=== PATIENT | female | born 1955 | race Caucasian/White ===

== ENCOUNTER 2016-03-13 06:20 | Emergency (ER) | payer OTHER ==
[~2016-03-13] VITALS: Ht 175.2 cm; Wt 63.5 kg
--- NOTE | ~2016-03-13 | EKG ---
[place], [place] ELECTROCARDIOGRAM REPORT NAME: RENATE TERRAZAS UNIT #: [id number] ROOM: DOCTOR: KARTHIK THAKKAR MD BIRTHDATE: [birth year] DOS: 03/13/2016 TIME: 7 hours and 10 minutes. EKG shows sinus bradycardia at the heart rate of 56 beats per minute. Normal cardiac axis. No significant ST-T abnormality. KARTHIK THAKKAR MD CM:EKGRPT:ELECTROCARDIOGRAM REPORT [id number] KARTHIK THAKKAR MD
[~2016-03-13 06:20] MED LIST: ALBUTEROL0.09 MG/A2 IH; AMOXIL500 MG PO; ASPIRIN CHEWABL81 MG PO; ASPIRIN81 M1 PO; ATARAX25 MG PO; BENTYL20 MG PO; CIPRO250 MG PO; CLARITIN10 MG PO; COREG PO; COREG25 MG PO; COREG6.25 MG PO; DIPHENHYDRAMINE50 M1 PO; EPI EZ PEN1 MG/ML IM; FLEXERIL10 MG PO; FLEXERIL5 MG PO; FLOMAX0.4 MG PO; Fioricet 325 MG1 TAB PO; IMITREX100 MG PO; KEFLEX500 MG PO; KENALOG0.1% TP; LEVAQUIN LEVA-750 MG PO; LIDEX 0.05% CRE15 GM T; LIDEX0.05% T; LIPITOR40 MG PO; MEDROL DOSEPAK4 MG PO; MOBIC7.5 MG PO; MOTRIN600 MG PO; MOTRIN800 MG PO; Motrin,Rufen800 MG PO; NAPROSYN500 MG PO; PERCOCET 325 MG1 TA2 PO; PERCOCET 325 MG1 TA7 PO; PLAVIX75 MG PO; PREDNICOT20 MG PO; PREDNISONE20 M1 PO; PREDNISONE20 MG PO; PRILOSEC20 MG PO; PROZAC20 MG PO; SUPER EPA-3001000 MG PO; TORADOL10 MG PO; TRAMADOL HCL50 MG PO; TRAMADOL50 MG PO; TRAZADONE HYDR100 MG PO; TRAZODONE100 MG PO; ULTRAM50 MG PO; VICODIN 500 MG-1 TAB PO; VOLTAREN50 M1 PO; XANAX XR2 MG PO; XANAX0.25 MG PO; XANAX2 MG PO; ZANTAC 150150 MG PO; ZESTRIL5 MG PO
[2016-03-13] MEDS ORDERED: TRAZODONE100 MG PO (06:26)
[2016-03-13] MEDS ORDERED: PROZAC20 MG PO (06:26)
[2016-03-13] MEDS ORDERED: XANAX2 M1 PO (06:26)
[2016-03-13] MEDS ORDERED: ASPIRIN81 M1 PO (06:27)
[2016-03-13] MEDS ORDERED: PRAVACHOL40 MG PO (06:27)
[2016-03-13 07:06] LABS: BASO # 0.1 10*3/uL (0.0-0.1); BASO % 0.7 % (0.0-1.0); EOS # 0.3 10*3/uL (0.0-0.4); EOS % 2.7 % (1.0-4.0); HEMATOCRIT 40.7 % (37.0-47.0); HEMOGLOBIN 13.7 g/dl (12.0-16.0); LYMPH # 3.5 10*3/uL (1.3-4.4); LYMPH % 30.7 % (27.0-41.0); MEAN CELL VOLUME 96.2 fl (81.0-99.0); MEAN CORPUSCULAR HGB 32.4 pg (27.0-31.0); MEAN CORPUSCULAR HGB CONC 33.7 g/dl (33.0-37.0); MEAN PLATELET VOLUME 9.5 fl (9.6-12.3); MONO # 0.9 10*3/uL (0.1-1.0); MONO % 7.8 % (3.0-9.0); NEUT # 6.6 10*3/uL (2.3-7.9); NEUT % 57.7 % (47.0-73.0); PLATELET COUNT AUTOMATED 278 10*3/uL (130-400); RED BLOOD COUNT 4.23 10*6/uL (4.10-5.10); RED CELL DISTRI WIDTH 12.4 % (0-14.5); WHITE BLOOD COUNT 11.3 10*3/uL (4.8-10.8)
[2016-03-13 07:16] LABS: MAGNESIUM 1.7 mg/dL (1.5-2.1)
[2016-03-13 08:06] LABS: ALBUMIN 2.9 gm/dl (3.1-4.5); ALKALINE PHOSPHATASE 77 U/L (45-117); BILIRUBIN, TOTAL 0.2 mg/dl (0.2-1.0); BUN 9 mg/dl (7-24); CARBON DIOXIDE 28 mmol/L (21-32); CHLORIDE 107 mmol/L (98-107); EST GLOM FILT AFRICAN AMERICAN > 60 ml/min; GLUCOSE 81 mg/dL (65-99); POTASSIUM 3.8 mmol/L (3.5-5.1); SGOT/AST 15 IU/L (3-35); SGPT/ALT 21 U/L (12-78); SODIUM 142 mmol/L (136-145); TOTAL PROTEIN 6.8 gm/dL (6.4-8.2)
[2016-05-18] MEDS ORDERED: Fioricet 325 MG1 TAB PO (03:09)
== END 2016-03-13 11:31 | disposition home or self-care (01) ==
LOC: ED 06:20
PROVIDERS: Emergency Medicine Emergency Medical Services
DX: R51 Headache (principal); Z88.1 Allergy status to other antibiotic agents; Z88.6 Allergy status to analgesic agent; Z91.013 Allergy to seafood; Z79.82 Long term (current) use of aspirin; Z90.710 Acquired absence of both cervix and uterus

== ENCOUNTER → 2016-04-02 | Outpatient (CLI) | payer OTHER ==
[~2016-04-02] MED LIST changes: +PRAVACHOL40 MG PO; +XANAX2 M1 PO
== END | disposition home or self-care (01) ==
LOC: RAD 10:52
DX: R06.02 Shortness of breath (principal); F17.200 Nicotine dependence, unspecified, uncomplicated; R05 Cough; R07.9 Chest pain, unspecified

== ENCOUNTER 2016-06-25 13:24 | Emergency (ER) | payer OTHER ==
[~2016-06-25] VITALS: Wt 64.4 kg
[2016-06-25] MEDS ORDERED: PERCOCET 325 MG1 TA2 PO (15:16)
== END 2016-06-25 15:22 | disposition home or self-care (01) ==
LOC: ED 13:24
DX: S80.02XA Contusion of left knee, initial encounter (principal); S90.02XA Contusion of left ankle, initial encounter; F17.200 Nicotine dependence, unspecified, uncomplicated; Z98.890 Other specified postprocedural states; Z90.710 Acquired absence of both cervix and uterus; Z79.899 Other long term (current) drug therapy; Z79.82 Long term (current) use of aspirin; Z88.1 Allergy status to other antibiotic agents; Z91.013 Allergy to seafood; Z96.652 Presence of left artificial knee joint; W01.0XXA Fall on same level from slipping, tripping and stumbling without subsequent striking against object, initial encounter; Y93.89 Activity, other specified; Y92.89 Other specified places as the place of occurrence of the external cause; Y99.9 Unspecified external cause status

== ENCOUNTER → 2017-05-13 | Outpatient (CLI) | payer OTHER | END | disposition home or self-care (01) | LOC: CT 14:54 | DX: N20.0 Calculus of kidney (principal) ==

== ENCOUNTER → 2017-11-11 | Outpatient (CLI) | payer OTHER ==
[~2017-11-11] MED LIST changes: +TESSALON PERLE100 MG PO; +ZITHROMAX250 MG PO
== END | disposition home or self-care (01) ==
LOC: RAD 13:31
DX: M17.11 Unilateral primary osteoarthritis, right knee (principal); M25.461 Effusion, right knee; R19.7 Diarrhea, unspecified; R35.0 Frequency of micturition; R14.0 Abdominal distension (gaseous); Z90.49 Acquired absence of other specified parts of digestive tract; Z96.652 Presence of left artificial knee joint; Z90.710 Acquired absence of both cervix and uterus

== ENCOUNTER 2017-12-16 16:41 | Emergency (ER) | payer OTHER ==
[~2017-12-16] VITALS: Ht 167.6 cm; Wt 61.2 kg
--- NOTE | ~2017-12-16 | EKG ---
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
[~2017-12-16 16:41] MED LIST changes: -TESSALON PERLE100 MG PO; -ZITHROMAX250 MG PO
[2017-12-16 17:45] LABS: BASO # 0.1 10*3/uL (0.0-0.1); BASO % 0.7 % (0.0-1.0); EOS # 0.3 10*3/uL (0.0-0.4); EOS % 2.8 % (1.0-4.0); HEMATOCRIT 43.8 % (37.0-47.0); HEMOGLOBIN 15.1 g/dl (12.0-16.0); LYMPH # 3.7 10*3/uL (1.3-4.4); LYMPH % 35.3 % (27.0-41.0); MEAN CELL VOLUME 95.2 fl (81.0-99.0); MEAN CORPUSCULAR HGB 32.8 pg (27.0-31.0); MEAN CORPUSCULAR HGB CONC 34.5 g/dl (33.0-37.0); MEAN PLATELET VOLUME 9.1 fl (9.6-12.3); MONO # 0.8 10*3/uL (0.1-1.0); MONO % 7.6 % (3.0-9.0); NEUT # 5.6 10*3/uL (2.3-7.9); NEUT % 53.2 % (47.0-73.0); PLATELET COUNT AUTOMATED 285 10*3/uL (130-400); RED CELL DISTRI WIDTH 12.3 % (0-14.5); WHITE BLOOD COUNT 10.6 10*3/uL (4.8-10.8)
[2017-12-16 18:01] LABS: ALBUMIN 3.8 gm/dl (3.1-4.5); CREATININE 1.15 mg/dL (0.55-1.02); POTASSIUM 4.1 mmol/L (3.5-5.1); TOTAL PROTEIN 8.6 gm/dL (6.4-8.2)
[2017-12-16 19:34] LABS: BILIRUBIN NEGATIVE (NEGATIVE); BLOOD 1+ (NEGATIVE); CLARITY CLEAR (CLEAR); COLOR YELLOW (YELLOW); GLUCOSE NEGATIVE (NEGATIVE); KETONE NEGATIVE (NEGATIVE); LEUKO ESTERASE 1+ (NEGATIVE); NITRITE NEGATIVE (NEGATIVE); SPECIFIC GRAVITY <= 1.005 (1.005-1.030); UROBILINOGEN 0.2 E.U./dl (0.2-1.0)
[2017-12-16 19:39] LABS: BACTERIA TRACE; RBC 0-2 rbc/hpf (0-2)
[2017-12-16] MEDS ORDERED: ZITHROMAX250 MG PO (20:44)
[2017-12-16] MEDS ORDERED: TESSALON PERLE100 MG PO (20:44)
== END 2017-12-16 20:54 | disposition home or self-care (01) ==
LOC: ED 16:41
PROVIDERS: Emergency Medicine
DX: J40 Bronchitis, not specified as acute or chronic (principal); J98.01 Acute bronchospasm; K55.1 Chronic vascular disorders of intestine; G89.29 Other chronic pain; F17.200 Nicotine dependence, unspecified, uncomplicated; Z88.1 Allergy status to other antibiotic agents; Z91.013 Allergy to seafood; Z88.6 Allergy status to analgesic agent; Z79.899 Other long term (current) drug therapy; Z79.82 Long term (current) use of aspirin; Z90.710 Acquired absence of both cervix and uterus

== ENCOUNTER 2018-04-23 00:29 | Emergency (ER) | payer OTHER ==
[~2018-04-23] VITALS: Ht 175.2 cm; Wt 65.8 kg
--- NOTE | ~2018-04-23 | EKG ---
[place], [place] ELECTROCARDIOGRAM REPORT NAME: RENATE TERRAZAS UNIT #: [id number] ROOM: DOCTOR: EPIPHANY DRAFT REPORT BIRTHDATE: [birth year] [facility] Test Date: 2018-04-23 Test Time: 03:24:36 Pat Name: RENATE TERRAZAS Department: ER Room: 3 Gender: F Survey Analyst: Carlotta Agudelo : 1955 Requested By: JACOBO BOOTHE Order Number: [id number] Reading MD: Joan Guillen MD Measurements Intervals [place] Rate: 60 P: 29 [place]: 171 QRS: 40 QRSD: 82 T: 52 QT: 441 QTc: 441 Interpretive Statements Sinus rhythm Compared to ECG 12/16/2017 17:36:01 No significant changes Electronically Signed On 04-23-2018 7:52:38 PST by Joan Guillen MD CM:EKGRPT:ELECTROCARDIOGRAM REPORT [id number] JACOBO GELLER DRAFT REPORT JACOBO BOOTHE DO
--- NOTE | ~2018-04-23 | EKG ---
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
--- NOTE | ~2018-04-23 | EKG ---
[place], [place] ELECTROCARDIOGRAM REPORT NAME: RENATE TERRAZAS UNIT #: [id number] ROOM: DOCTOR: EPIPHANY DRAFT REPORT BIRTHDATE: [birth year] [facility] Test Date: 2018-04-23 Test Time: 07:07:07 Pat Name: RENATE TERRAZAS Department: Room: Gender: F Manager Supplier: Rebecca Sargent : 1955 Requested By: JACOBO BOOTHE Order Number: [id number] Reading MD: Joan Guillen MD Measurements Intervals [place] Rate: 63 P: 19 [place]: 150 QRS: 43 QRSD: 79 T: 53 QT: 444 QTc: 455 Interpretive Statements Sinus rhythm Normal ECG Compared to ECG 12/16/2017 17:36:01 No significant changes Electronically Signed On 04-23-2018 7:52:54 PST by Joan Guillen MD CM:EKGRPT:ELECTROCARDIOGRAM REPORT [id number] JACOBO GELLER DRAFT REPORT JACOBO BOOTHE DO
[~2018-04-23 00:29] MED LIST changes: +TESSALON PERLE100 MG PO; +ZITHROMAX250 MG PO
[2018-04-23 00:47] LABS: BASO # 0.1 10*3/uL (0.0-0.1); BASO % 0.7 % (0.0-1.0); EOS # 0.5 10*3/uL (0.0-0.4); EOS % 3.3 % (1.0-4.0); HEMATOCRIT 42.6 % (37.0-47.0); HEMOGLOBIN 14.6 g/dl (12.0-16.0); LYMPH # 4.1 10*3/uL (1.3-4.4); LYMPH % 28.4 % (27.0-41.0); MEAN CELL VOLUME 95.9 fl (81.0-99.0); MEAN CORPUSCULAR HGB 32.9 pg (27.0-31.0); MEAN CORPUSCULAR HGB CONC 34.3 g/dl (33.0-37.0); MEAN PLATELET VOLUME 9.2 fl (9.6-12.3); MONO # 1.2 10*3/uL (0.1-1.0); MONO % 8.1 % (3.0-9.0); NEUT # 8.6 10*3/uL (2.3-7.9); NEUT % 59.2 % (47.0-73.0); PLATELET COUNT AUTOMATED 317 10*3/uL (130-400); RED BLOOD COUNT 4.44 10*6/uL (4.10-5.10); RED CELL DISTRI WIDTH 12.1 % (0-14.5); WHITE BLOOD COUNT 14.4 10*3/uL (4.8-10.8)
[2018-04-23 01:02] LABS: ACT PARTIAL THROMBO TIME 27.4 SECONDS (20.8-31.5)
[2018-04-23 01:05] LABS: ALBUMIN 3.6 gm/dl (3.1-4.5); ALKALINE PHOSPHATASE 87 U/L (45-117); BUN 24 mg/dl (7-24); CHLORIDE 104 mmol/L (98-107); CREATININE 1.22 mg/dL (0.55-1.02); POTASSIUM 3.5 mmol/L (3.5-5.1); SGOT/AST 17 IU/L (3-35); SGPT/ALT 18 U/L (12-78); SODIUM 136 mmol/L (136-145); TOTAL PROTEIN 8.2 gm/dL (6.4-8.2)
[2018-04-23 01:06] LABS: TROPONIN I < 0.015 ng/ml (<0.045)
== END 2018-04-23 08:56 | disposition left against medical advice (07) ==
LOC: ED 00:29
PROVIDERS: Student in an Organized Health Care Education/Training Program
DX: R07.9 Chest pain, unspecified (principal); M13.831 Other specified arthritis, right wrist; J44.9 Chronic obstructive pulmonary disease, unspecified; Z79.899 Other long term (current) drug therapy; Z79.82 Long term (current) use of aspirin; Z88.1 Allergy status to other antibiotic agents; Z91.013 Allergy to seafood

== ENCOUNTER 2018-08-09 02:05 | Emergency (ER) | payer OTHER ==
[~2018-08-09] VITALS: Ht 175.2 cm; Wt 65.8 kg
== END 2018-08-09 05:48 | disposition home or self-care (01) ==
LOC: ED 02:05
DX: S52.501A Unspecified fracture of the lower end of right radius, initial encounter for closed fracture (principal); Z79.899 Other long term (current) drug therapy; Z79.82 Long term (current) use of aspirin; Z88.6 Allergy status to analgesic agent; Z88.1 Allergy status to other antibiotic agents; Z91.013 Allergy to seafood; W18.30XA Fall on same level, unspecified, initial encounter; Y93.89 Activity, other specified; Y92.096 Garden or yard of other non-institutional residence as the place of occurrence of the external cause; Y99.8 Other external cause status

== ENCOUNTER → 2018-08-26 | Outpatient (CLI) | payer OTHER | END | disposition home or self-care (01) | LOC: ORTHO 00:47 | DX: S52.531D Colles' fracture of right radius, subsequent encounter for closed fracture with routine healing (principal); S52.501D Unspecified fracture of the lower end of right radius, subsequent encounter for closed fracture with routine healing; M79.89 Other specified soft tissue disorders; X58.XXXD Exposure to other specified factors, subsequent encounter ==

== ENCOUNTER → 2018-11-17 | Outpatient (CLI) | payer OTHER | END | disposition home or self-care (01) | LOC: LAB 11:11 | DX: K92.1 Melena (principal); R19.7 Diarrhea, unspecified ==

== ENCOUNTER → 2018-11-18 | Outpatient (CLI) | payer OTHER ==
[2018-11-18 11:39] LABS: BASO # 0.1 10*3/uL (0.0-0.1); BASO % 0.9 % (0.0-1.0); EOS # 0.3 10*3/uL (0.0-0.4); EOS % 2.8 % (1.0-4.0); HEMATOCRIT 44.7 % (37.0-47.0); HEMOGLOBIN 14.8 g/dl (12.0-16.0); LYMPH # 2.8 10*3/uL (1.3-4.4); LYMPH % 27.8 % (27.0-41.0); MEAN CELL VOLUME 96.5 fl (81.0-99.0); MEAN CORPUSCULAR HGB CONC 33.1 g/dl (33.0-37.0); MEAN PLATELET VOLUME 9.5 fl (9.6-12.3); MONO # 0.8 10*3/uL (0.1-1.0); MONO % 7.4 % (3.0-9.0); NEUT # 6.2 10*3/uL (2.3-7.9); NEUT % 60.7 % (47.0-73.0); PLATELET COUNT AUTOMATED 361 10*3/uL (130-400); RED BLOOD COUNT 4.63 10*6/uL (4.10-5.10); RED CELL DISTRI WIDTH 12.9 % (0-14.5); WHITE BLOOD COUNT 10.2 10*3/uL (4.8-10.8)
[2018-11-18 12:07] LABS: ALBUMIN 3.4 gm/dl (3.1-4.5); ALKALINE PHOSPHATASE 98 U/L (45-117); BUN 14 mg/dl (7-24); CHLORIDE 105 mmol/L (98-107); CREATININE 0.98 mg/dL (0.55-1.02); SGOT/AST 16 IU/L (3-35); SGPT/ALT 17 U/L (12-78); SODIUM 137 mmol/L (136-145); TOTAL PROTEIN 8.3 gm/dL (6.4-8.2)
[2018-11-20 14:08] LABS: ATYPICAL PANCA 1:40 titer (Neg:<1:20); CYTOPLASMIC (C-ANCA) <1:20 titer (Neg:<1:20)
== END | disposition home or self-care (01) ==
LOC: LAB 10:57
PROVIDERS: Nurse Practitioner Primary Care
DX: K92.1 Melena (principal); R19.7 Diarrhea, unspecified

== ENCOUNTER → 2019-12-15 | Outpatient (CLI) | payer OTHER ==
[2019-12-15 12:41] LABS: BASO # 0.1 10*3/uL (0.0-0.1); BASO % 0.9 % (0.0-1.0); EOS # 0.3 10*3/uL (0.0-0.4); EOS % 3.5 % (1.0-4.0); LYMPH # 2.7 10*3/uL (1.3-4.4); LYMPH % 30.2 % (27.0-41.0); MEAN CELL VOLUME 94.1 fl (81.0-99.0); MEAN CORPUSCULAR HGB 31.5 pg (27.0-31.0); MEAN CORPUSCULAR HGB CONC 33.5 g/dl (33.0-37.0); MEAN PLATELET VOLUME 10.1 fl (9.6-12.3); MONO # 0.6 10*3/uL (0.1-1.0); MONO % 7.2 % (3.0-9.0); NEUT # 5.1 10*3/uL (2.3-7.9); PLATELET COUNT AUTOMATED 330 10*3/uL (130-400); RED BLOOD COUNT 4.89 10*6/uL (4.10-5.10); RED CELL DISTRI WIDTH 12.5 % (0-14.5); WHITE BLOOD COUNT 8.8 10*3/uL (4.8-10.8)
[2019-12-15 13:08] LABS: ALBUMIN 3.2 gm/dl (3.1-4.5); BILIRUBIN, DIRECT < 0.1 mg/dL (0.0-0.2); BUN 8 mg/dl (7-24); CHLORIDE 103 mmol/L (98-107); POTASSIUM 3.1 mmol/L (3.5-5.1); SGOT/AST 13 IU/L (3-35); SODIUM 138 mmol/L (136-145)
[2019-12-15 13:16] LABS: ALKALINE PHOSPHATASE 107 U/L (45-117); CHOLESTEROL 166 mg/dL (<200); CREATININE 0.93 mg/dL (0.55-1.02); HDL CHOLESTEROL 35 mg/dl (40-60); LDL CHOLESTEROL 86 mg/dL (9-159); SGPT/ALT 11 U/L (12-78); T3 UPTAKE 34 % (31-39); THYROXINE (T4) TOTAL 5.2 ug/dl (4.8-13.9); TRIGLYCERIDES 225 mg/dl (<150); VLDL CHOLESTEROL 45 mg/dL (6-40)
== END | disposition home or self-care (01) ==
LOC: LAB 11:31
DX: F32.9 Major depressive disorder, single episode, unspecified (principal); Z79.899 Other long term (current) drug therapy

== ENCOUNTER 2020-02-09 09:23 | Emergency (ER) | payer OTHER ==
[~2020-02-09] VITALS: Ht 175.2 cm; Wt 73.8 kg
[2020-02-09 09:28] VITALS: BP 140/70
[2020-02-09 10:12] LABS: BASO # 0.1 10*3/uL (0.0-0.1); BASO % 0.5 % (0.0-1.0); EOS # 0.2 10*3/uL (0.0-0.4); HEMATOCRIT 42.7 % (37.0-47.0); LYMPH # 2.1 10*3/uL (1.3-4.4); LYMPH % 19.2 % (27.0-41.0); MEAN CELL VOLUME 96.8 fl (81.0-99.0); MEAN CORPUSCULAR HGB 32.2 pg (27.0-31.0); MEAN CORPUSCULAR HGB CONC 33.3 g/dl (33.0-37.0); MEAN PLATELET VOLUME 9.6 fl (9.6-12.3); MONO # 0.9 10*3/uL (0.1-1.0); NEUT # 7.5 10*3/uL (2.3-7.9); PLATELET COUNT AUTOMATED 280 10*3/uL (130-400); RED BLOOD COUNT 4.41 10*6/uL (4.10-5.10); WHITE BLOOD COUNT 10.7 10*3/uL (4.8-10.8)
[2020-02-09 10:23] LABS: ACT PARTIAL THROMBO TIME 31.1 SECONDS (20.0-32.1)
[2020-02-09 10:27] LABS: ALBUMIN 3.4 gm/dl (3.1-4.5); ALKALINE PHOSPHATASE 93 U/L (45-117); BUN 8 mg/dl (7-24); CHLORIDE 105 mmol/L (98-107); CREATININE 0.84 mg/dL (0.55-1.02); POTASSIUM 2.7 mmol/L (3.5-5.1); SGOT/AST 46 IU/L (3-35); SGPT/ALT 20 U/L (12-78); SODIUM 140 mmol/L (136-145); TOTAL PROTEIN 7.9 gm/dL (6.4-8.2)
[2020-02-09 10:50] LABS: ETHYL ALCOHOL < 3.0 mg/dl (<3); TROPONIN I < 0.015 ng/ml (<0.045)
[2020-02-09 10:52] LABS: BILIRUBIN Negative (Negative); BLOOD 1+ (Negative); CLARITY Clear (Clear); COLOR Yellow (Yellow); GLUCOSE Negative (Negative); KETONE Negative (Negative); LEUKO ESTERASE 1+ (Negative); NITRITE Positive (Negative); PH 5.5 (4.5-8.0); SPECIFIC GRAVITY <= 1.005 (1.001-1.030); UROBILINOGEN 0.2 E.U./dl (0.0-1.0)
[2020-02-09 11:00] LABS: URINE AMPHETAMINES < 1000 (1000ng/ml); URINE BARBITURATES < 200 (200ng/ml); URINE BENZODIAZEPINES > 200 (200ng/ml); URINE CANNABINOIDS (THC) < 50 (50ng/ml); URINE COCAINE < 300 (300ng/ml); URINE METHADONE < 300 (300ng/ml); URINE OPIATES < 300 (300ng/ml)
[2020-02-09 11:01] LABS: URINE PHENCYCLIDINE < 25 (25ng/ml)
[2020-02-09 11:12] LABS: BACTERIA 4+; EPITHELIAL CELLS 0-2
[2020-02-09 12:56] VITALS: BP 143/64
[2020-02-09] MEDS ORDERED: POTASSIUM CHLO20 ME3 PO (13:23)
[2020-02-09] MEDS ORDERED: MAGNESIUM400 M1 PO (13:25)
[2020-02-09] MEDS ORDERED: ECPIRIN325 MG PO (13:26)
== END 2020-02-09 15:00 | disposition left against medical advice (07) ==
LOC: ED 09:23 → EDHOLD 13:26 → ED 13:26
PROVIDERS: Emergency Medicine; Family Medicine
DX: G45.9 Transient cerebral ischemic attack, unspecified (principal); E87.6 Hypokalemia; Z53.29 Procedure and treatment not carried out because of patient's decision for other reasons; Z79.899 Other long term (current) drug therapy; Z79.82 Long term (current) use of aspirin

== ENCOUNTER 2020-07-12 23:12 | Emergency (ER) | payer OTHER ==
[~2020-07-12] VITALS: Wt 69.6 kg
[~2020-07-12 23:12] MED LIST changes: +ECPIRIN325 MG PO; +MAGNESIUM400 M1 PO; +POTASSIUM CHLO20 ME3 PO
== END 2020-07-13 09:05 | disposition left against medical advice (07) ==
LOC: ED 23:12
DX: M54.12 Radiculopathy, cervical region (principal); G45.9 Transient cerebral ischemic attack, unspecified; Z88.6 Allergy status to analgesic agent; Z91.013 Allergy to seafood; Z79.899 Other long term (current) drug therapy; Z79.82 Long term (current) use of aspirin; Z98.890 Other specified postprocedural states

== ENCOUNTER 2020-07-18 00:54 | Emergency (ER) | payer OTHER | END 2020-07-18 04:33 | disposition home or self-care (01) | LOC: ED 00:54 | DX: S91.012A Laceration without foreign body, left ankle, initial encounter (principal); M54.5 Low back pain; M54.2 Cervicalgia; Z90.710 Acquired absence of both cervix and uterus; Z98.890 Other specified postprocedural states; Z79.82 Long term (current) use of aspirin; Z79.899 Other long term (current) drug therapy; Z88.6 Allergy status to analgesic agent; Z88.5 Allergy status to narcotic agent; Z88.1 Allergy status to other antibiotic agents; Z91.013 Allergy to seafood; Z86.73 Personal history of transient ischemic attack (TIA), and cerebral infarction without residual deficits; W18.30XA Fall on same level, unspecified, initial encounter; Y93.89 Activity, other specified; Y92.89 Other specified places as the place of occurrence of the external cause; Y99.9 Unspecified external cause status ==

== ENCOUNTER → 2020-10-03 | Outpatient (CLI) | payer OTHER | END | disposition home or self-care (01) | LOC: RAD 13:30 → CARD 14:00 | PROVIDERS: ATTEND Nurse Practitioner Primary Care | DX: Z13.820 Encounter for screening for osteoporosis (principal); I65.23 Occlusion and stenosis of bilateral carotid arteries; I34.0 Nonrheumatic mitral (valve) insufficiency; I25.10 Atherosclerotic heart disease of native coronary artery without angina pectoris; E78.2 Mixed hyperlipidemia; G45.9 Transient cerebral ischemic attack, unspecified; Z78.0 Asymptomatic menopausal state ==

== ENCOUNTER 2021-01-30 19:20 | Emergency (ER) | payer OTHER ==
[~2021-01-30] VITALS: Ht 401.3 cm; Wt 59.9 kg
== END 2021-01-30 22:28 | disposition left against medical advice (07) ==
LOC: ED 19:20
DX: M25.551 Pain in right hip (principal); Z53.21 Procedure and treatment not carried out due to patient leaving prior to being seen by health care provider

== ENCOUNTER 2021-02-04 19:17 | Emergency (ER) | payer OTHER ==
[~2021-02-04] VITALS: Ht 160 cm; Wt 59.0 kg
[2021-02-04 19:41] LABS: BASO # 0.1 10*3/uL (0.0-0.1); BASO % 0.8 % (0.0-1.0); EOS # 0.1 10*3/uL (0.0-0.4); EOS % 1.2 % (1.0-4.0); HEMATOCRIT 43.2 % (37.0-47.0); LYMPH # 2.4 10*3/uL (1.3-4.4); LYMPH % 27.3 % (27.0-41.0); MEAN CELL VOLUME 93.7 fl (81.0-99.0); MEAN CORPUSCULAR HGB 31.5 pg (27.0-31.0); MEAN CORPUSCULAR HGB CONC 33.6 g/dl (33.0-37.0); MEAN PLATELET VOLUME 9.5 fl (9.6-12.3); MONO # 0.9 10*3/uL (0.1-1.0); MONO % 9.6 % (3.0-9.0); NEUT # 5.4 10*3/uL (2.3-7.9); NEUT % 60.9 % (47.0-73.0); PLATELET COUNT AUTOMATED 285 10*3/uL (130-400); RED BLOOD COUNT 4.61 10*6/uL (4.10-5.10); RED CELL DISTRI WIDTH 12.3 % (0-14.5); WHITE BLOOD COUNT 8.9 10*3/uL (4.8-10.8)
[2021-02-04 19:56] LABS: ALKALINE PHOSPHATASE 87 U/L (45-117); BUN 10 mg/dl (7-24); CHLORIDE 105 mmol/L (98-107); CREATININE 0.85 mg/dL (0.55-1.02); POTASSIUM 3.1 mmol/L (3.5-5.1); SGOT/AST 15 IU/L (3-35); SGPT/ALT 15 U/L (12-78); SODIUM 138 mmol/L (136-145); TOTAL PROTEIN 7.7 gm/dL (6.4-8.2)
[2021-02-04] MEDS ORDERED: K-TAB20 MEQ PO (20:49)
[2021-02-04] MEDS ORDERED: MEDROL DOSEPAK4 MG PO (20:49)
== END 2021-02-04 20:56 | disposition home or self-care (01) ==
LOC: ED 19:17
PROVIDERS: Physician Assistant
DX: E87.6 Hypokalemia (principal); R53.1 Weakness; Z88.6 Allergy status to analgesic agent; Z91.013 Allergy to seafood; Z88.1 Allergy status to other antibiotic agents; Z79.899 Other long term (current) drug therapy; Z79.82 Long term (current) use of aspirin

== ENCOUNTER 2021-10-15 19:51 | Emergency (ER) | payer OTHER ==
[~2021-10-15] VITALS: Ht 175.3 cm; Wt 72.6 kg
[~2021-10-15 19:51] MED LIST changes: +K-TAB20 MEQ PO
== END 2021-10-16 00:29 | disposition left against medical advice (07) ==
LOC: ED 19:51
DX: L81.0 Postinflammatory hyperpigmentation (principal); L81.9 Disorder of pigmentation, unspecified; Z90.710 Acquired absence of both cervix and uterus; Z98.890 Other specified postprocedural states; Z79.82 Long term (current) use of aspirin; Z79.899 Other long term (current) drug therapy; Z88.6 Allergy status to analgesic agent; Z88.5 Allergy status to narcotic agent; Z88.1 Allergy status to other antibiotic agents

== ENCOUNTER → 2022-09-05 | Outpatient (CLI) | payer OTHER | END | disposition home or self-care (01) | LOC: MAMMO 09:57 | PROVIDERS: ATTEND Physician Assistant | DX: N63.20 Unspecified lump in the left breast, unspecified quadrant (principal); R92.8 Other abnormal and inconclusive findings on diagnostic imaging of breast ==

== ENCOUNTER → 2022-11-05 | Outpatient (CLI) | payer OTHER ==
[~2022-11-05] MED LIST changes: +SEPTDS PO
== END | disposition home or self-care (01) ==
LOC: CT 11-01 14:00
PROVIDERS: ATTEND Physician Assistant
DX: J43.9 Emphysema, unspecified (principal); F17.210 Nicotine dependence, cigarettes, uncomplicated; J84.10 Pulmonary fibrosis, unspecified

== ENCOUNTER → 2022-12-19 | Outpatient (CLI) | payer OTHER | END | disposition home or self-care (01) | LOC: CT 12-13 00:10 | PROVIDERS: ATTEND Physician Assistant | DX: N20.0 Calculus of kidney (principal); R63.4 Abnormal weight loss; N28.1 Cyst of kidney, acquired; I70.0 Atherosclerosis of aorta; M41.55 Other secondary scoliosis, thoracolumbar region; Z90.49 Acquired absence of other specified parts of digestive tract ==

== ENCOUNTER → 2024-01-14 | Outpatient (CLI) | payer OTHER | END | disposition home or self-care (01) | LOC: RAD 12:11 | PROVIDERS: ATTEND Physician Assistant | DX: M47.816 Spondylosis without myelopathy or radiculopathy, lumbar region (principal); M54.9 Dorsalgia, unspecified; M25.552 Pain in left hip; M25.551 Pain in right hip; W19.XXXA Unspecified fall, initial encounter; Z96.652 Presence of left artificial knee joint ==

== ENCOUNTER 2024-03-01 16:07 | Inpatient (IN) | payer OTHER ==
[~2024-03-01] VITALS: Wt 65.3 kg
[2024-03-01 16:11] VITALS: BP 152/81
[2024-03-01] MEDS ORDERED: SODIUM CHLORIDE 0.9% 1,000 ML IV ONE (16:25)
[2024-03-01 16:48] LABS: BASO # 0.1 10*3/uL (0.0-0.1); BASO % 0.3 % (0.0-1.0); EOS % 0.2 % (1.0-4.0); HEMATOCRIT 45.3 % (37.0-47.0); MEAN CELL VOLUME 94.4 fl (81.0-99.0); MEAN CORPUSCULAR HGB 31.9 pg (27.0-31.0); MEAN CORPUSCULAR HGB CONC 33.8 g/dl (33.0-37.0); MONO # 0.8 10*3/uL (0.1-1.0); MONO % 4.7 % (3.0-9.0); NEUT # 14.7 10*3/uL (2.3-7.9); NEUT % 88.4 % (47.0-73.0); PLATELET COUNT AUTOMATED 392 10*3/uL (130-400); RED CELL DISTRI WIDTH 12.7 % (0-14.5); WHITE BLOOD COUNT 16.6 10*3/uL (4.8-10.8)
[2024-03-01 17:07] LABS: BUN 14 mg/dl (9-23); CHLORIDE 102 mmol/L (98-107); POTASSIUM 3.3 mmol/L (3.4-5.1)
[2024-03-01 17:13] LABS: ETHYL ALCOHOL < 3.0 mg/dl (<3)
[2024-03-01] MEDS ORDERED: POTASSIUM CHLORIDE 20 MEQ TAB PO ONE (18:25)
[2024-03-01 20:03] VITALS: BP 173/93
[2024-03-01 20:27] VITALS: BP 170/80
[2024-03-01] MEDS ORDERED: HEPARIN SODIUM 250 ML IV SCH (21:00)
[2024-03-01 21:22] VITALS: BP 137/83
[2024-03-01 21:28] LABS: BILIRUBIN Negative (Negative); BLOOD 2+ (Negative); CLARITY Clear (Clear); COLOR Yellow (Yellow); GLUCOSE Negative (Negative); KETONE Trace (Negative); LEUKO ESTERASE Negative (Negative); NITRITE Positive (Negative); PH 5.5 (4.5-8.0); UROBILINOGEN 0.2 E.U./dl (0.0-1.0)
[2024-03-01 21:38] LABS: URINE AMPHETAMINES Negative (1000ng/ml); URINE BARBITURATES Negative (200ng/ml); URINE BENZODIAZEPINES Positive (200ng/ml); URINE CANNABINOIDS (THC) Negative (50ng/ml); URINE COCAINE Negative (300ng/ml); URINE METHADONE Negative (300ng/ml); URINE OPIATES Negative (300ng/ml); URINE PHENCYCLIDINE Negative (25ng/ml)
[2024-03-01] MEDS ORDERED: Ondansetron Hydrochloride 4 MG/2 ML VIAL IV PRN (22:10)
[2024-03-01] MEDS ORDERED: Magnesium Hydroxide 30 ML UDC PO PRN (22:10)
[2024-03-01] MEDS ORDERED: ACETAMINOPHEN 650 MG SUPP R PRN (22:10)
[2024-03-01] MEDS ORDERED: ACETAMINOPHEN 325 MG TAB PO PRN (22:10)
[2024-03-01] MEDS ORDERED: BISACODYL 10 MG SUPP R PRN (22:10)
[2024-03-01] MEDS ORDERED: TEMAZEPAM 15 MG CAP PO PRN (22:10)
[2024-03-01] MEDS ORDERED: BISACODYL 5 MG TAB PO PRN (22:10)
[2024-03-01] MEDS ORDERED: Ceftriaxone Sodium 10 ML IV SCH (22:15)
[2024-03-01] MEDS ORDERED: ASPIRIN ENTERIC COATED 81 MG TAB PO ONE (22:15)
[2024-03-01 22:25] LABS: BACTERIA 4+; YEAST TRACE
[2024-03-02 00:37] VITALS: BP 162/84
[2024-03-02 03:12] VITALS: BP 167/82
[2024-03-02 06:26] VITALS: BP 186/84
[2024-03-02] MEDS ORDERED: ALPRAZolam 0.25 MG TAB PO ONE (06:30)
[2024-03-02 06:40] LABS: ALKALINE PHOSPHATASE 100 U/L (46-116); BUN 11 mg/dl (9-23); CHLORIDE 102 mmol/L (98-107); FREE T4 1.24 ng/dl (0.89-1.76); POTASSIUM 3.5 mmol/L (3.4-5.1); SGPT/ALT 9 U/L (5-49); TOTAL PROTEIN 8.2 gm/dL (6.0-8.0)
[2024-03-02 07:38] LABS: BASO % 0.2 % (0.0-1.0); HEMATOCRIT 44.6 % (37.0-47.0); MEAN CORPUSCULAR HGB 32.1 pg (27.0-31.0); MEAN PLATELET VOLUME 9.8 fl (9.6-12.3); MONO # 1.3 10*3/uL (0.1-1.0); MONO % 7.8 % (3.0-9.0); NEUT % 83.3 % (47.0-73.0); PLATELET COUNT AUTOMATED 353 10*3/uL (130-400); RED BLOOD COUNT 4.58 10*6/uL (4.10-5.10); RED CELL DISTRI WIDTH 13.2 % (0-14.5); WHITE BLOOD COUNT 16.8 10*3/uL (4.8-10.8)
[2024-03-02 07:49] LABS: MEAN CELL VOLUME 97.4 fl (81.0-99.0)
[2024-03-02] MEDS ORDERED: MORPHINE Sulfate 2 MG/ML SYR IV PRN (08:15)
[2024-03-02 08:28] VITALS: BP 186/84
[2024-03-02] MEDS ORDERED: Ketorolac Tromethamine 30 MG/ML VIAL IV ONE (09:00)
[2024-03-02] MEDS ORDERED: Cholecalciferol 2,000 UNIT TABLET (50 MCG) PO SCH (10:00)
[2024-03-02] MEDS ORDERED: ASPIRIN ENTERIC COATED 81 MG TAB PO SCH (10:00)
[2024-03-02] MEDS ORDERED: ATORVASTATIN CALCIUM 40 MG TABLET PO SCH (10:00)
[2024-03-02] MEDS ORDERED: ALPRAZolam 0.5 MG TAB PO PRN (10:50)
[2024-03-02 11:50] VITALS: BP 165/79
[2024-03-02] MEDS ORDERED: Clopidogrel Hydrogen Sulfate 75 MG TAB PO SCH (12:55)
[2024-03-02] MEDS ORDERED: ASPIRIN PO PRN (17:20)
[2024-03-02] MEDS ORDERED: ACETAMINOPHEN PO PRN (17:20)
[2024-03-02] MEDS ORDERED: CAFFEI PO PRN (17:20)
[2024-03-02] MEDS ORDERED: Fluoxetine Hydrochloride 20 MG CAP PO SCH (18:00)
[2024-03-02] MEDS ORDERED: Metoprolol Tartrate 25 MG TAB PO SCH (22:00)
== END 2024-03-02 19:04 | disposition short-term general hospital (02) | DRG 280 ==
LOC: ED 16:07 → EDHOLD 21:10
PROVIDERS: Nurse Practitioner Family; Student in an Organized Health Care Education/Training Program; ADMIT Internal Medicine; ATTEND Internal Medicine
PROC: 2W3FX1Z Immobilization of Left Hand using Splint (ICD-10-PCS; principal; 2024-03-01)
DX: I21.4 Non-ST elevation (NSTEMI) myocardial infarction (principal); G93.41 Metabolic encephalopathy; S52.502A Unspecified fracture of the lower end of left radius, initial encounter for closed fracture; N30.01 Acute cystitis with hematuria; K55.1 Chronic vascular disorders of intestine; G45.9 Transient cerebral ischemic attack, unspecified; I95.1 Orthostatic hypotension; G90.89 Other disorders of autonomic nervous system; E87.6 Hypokalemia; D72.828 Other elevated white blood cell count; R73.9 Hyperglycemia, unspecified; L23.9 Allergic contact dermatitis, unspecified cause; L20.0 Besnier's prurigo; I35.9 Nonrheumatic aortic valve disorder, unspecified; I25.10 Atherosclerotic heart disease of native coronary artery without angina pectoris; I10 Essential (primary) hypertension; W18.39XA Other fall on same level, initial encounter; Z96.652 Presence of left artificial knee joint; E78.5 Hyperlipidemia, unspecified; J43.9 Emphysema, unspecified; I45.81 Long QT syndrome; J44.9 Chronic obstructive pulmonary disease, unspecified; Z85.118 Personal history of other malignant neoplasm of bronchus and lung; Z95.5 Presence of coronary angioplasty implant and graft; Y93.89 Activity, other specified; Y92.89 Other specified places as the place of occurrence of the external cause; Y99.8 Other external cause status; Z90.49 Acquired absence of other specified parts of digestive tract; Z90.710 Acquired absence of both cervix and uterus; Z90.722 Acquired absence of ovaries, bilateral; Z87.891 Personal history of nicotine dependence; Z82.49 Family history of ischemic heart disease and other diseases of the circulatory system; Z88.5 Allergy status to narcotic agent; Z88.8 Allergy status to other drugs, medicaments and biological substances; Z88.1 Allergy status to other antibiotic agents

== ENCOUNTER → 2024-03-17 | Outpatient (CLI) | payer OTHER | END | disposition home or self-care (01) | LOC: ORTHO 08:16 | PROVIDERS: ATTEND Orthopaedic Surgery | DX: S62.102A Fracture of unspecified carpal bone, left wrist, initial encounter for closed fracture (principal); X58.XXXA Exposure to other specified factors, initial encounter; Y93.89 Activity, other specified; Y92.89 Other specified places as the place of occurrence of the external cause; Y99.8 Other external cause status ==

== ENCOUNTER → 2024-03-29 | Outpatient (CLI) | payer OTHER | END | disposition home or self-care (01) | LOC: CT 01-29 10:00 → MRI 03-15 10:00 | PROVIDERS: ATTEND Physician Assistant | DX: Z12.2 Encounter for screening for malignant neoplasm of respiratory organs (principal); S52.572A Other intraarticular fracture of lower end of left radius, initial encounter for closed fracture; F17.211 Nicotine dependence, cigarettes, in remission; J44.9 Chronic obstructive pulmonary disease, unspecified; R91.1 Solitary pulmonary nodule; I25.10 Atherosclerotic heart disease of native coronary artery without angina pectoris; M47.817 Spondylosis without myelopathy or radiculopathy, lumbosacral region; M48.07 Spinal stenosis, lumbosacral region; X58.XXXA Exposure to other specified factors, initial encounter; Y93.89 Activity, other specified; Y92.89 Other specified places as the place of occurrence of the external cause; Y99.8 Other external cause status ==

== ENCOUNTER → 2024-03-30 | Outpatient (CLI) | payer OTHER ==
[~2024-03-30] MED LIST changes: +'XANAX1 MG PO; +CARVEDILOL3.125 MG PO; +CLOPIDOGREL75 MG PO; +FLUOXETINE HYDR20 M1 PO; +OMEPRAZOLE MAGN20 MG PO; +POTASSIUM CHLO10 ME4 PO
== END | disposition home or self-care (01) ==
LOC: LAB 12:00
PROVIDERS: ATTEND Orthopaedic Surgery
DX: I51.7 Cardiomegaly (principal)

== ENCOUNTER → 2024-03-30 | Day surgery (SDC) | payer OTHER ==
[2024-03-29 11:41] LABS: BUN 11 mg/dl (9-23); CHLORIDE 99 mmol/L (98-107); POTASSIUM 3.3 mmol/L (3.4-5.1)
[~2024-03-30] VITALS: Ht 175.2 cm; Wt 61.2 kg
[~2024-03-30] MED LIST changes: -'XANAX1 MG PO; +BUPIVACAINE 0.5% 30 ML SINGLE DOSE VIAL SC ONE; -CARVEDILOL3.125 MG PO; -CLOPIDOGREL75 MG PO; -FLUOXETINE HYDR20 M1 PO; +Lactated Ringer's Solution 1,000 ML IV ONE; +Lidocaine Hydrochloride 30 ML VIAL SC ONE; -OMEPRAZOLE MAGN20 MG PO; -POTASSIUM CHLO10 ME4 PO; +POTASSIUM CHLORIDE 20 MEQ TAB PO ONE; +ceFAZolin sodium 2GM/20ML IV ONE; +ceFAZolin sodium/sodium chlor 0 ML IV ONE
[2024-03-30 08:00] VITALS: BP 146/78
== END | disposition home or self-care (01) ==
LOC: SDC 03-26 09:30
PROVIDERS: ATTEND Orthopaedic Surgery
DX: S52.572A Other intraarticular fracture of lower end of left radius, initial encounter for closed fracture (principal); Z53.8 Procedure and treatment not carried out for other reasons; M85.80 Other specified disorders of bone density and structure, unspecified site; I10 Essential (primary) hypertension; G43.909 Migraine, unspecified, not intractable, without status migrainosus; I25.10 Atherosclerotic heart disease of native coronary artery without angina pectoris; E78.00 Pure hypercholesterolemia, unspecified; I25.2 Old myocardial infarction; J44.9 Chronic obstructive pulmonary disease, unspecified; F41.9 Anxiety disorder, unspecified; Z90.710 Acquired absence of both cervix and uterus; Z95.818 Presence of other cardiac implants and grafts; Z96.652 Presence of left artificial knee joint; Z87.891 Personal history of nicotine dependence; Z86.73 Personal history of transient ischemic attack (TIA), and cerebral infarction without residual deficits; Z98.890 Other specified postprocedural states; Z88.1 Allergy status to other antibiotic agents; Z88.6 Allergy status to analgesic agent; Z88.5 Allergy status to narcotic agent; Z88.8 Allergy status to other drugs, medicaments and biological substances; X58.XXXA Exposure to other specified factors, initial encounter; Y93.89 Activity, other specified; Y92.89 Other specified places as the place of occurrence of the external cause; Y99.8 Other external cause status

== ENCOUNTER 2024-04-10 01:26 | Inpatient (IN) | payer OTHER ==
[~2024-04-10] VITALS: Ht 175.2 cm; Wt 62.1 kg
[~2024-04-10 01:26] MED LIST changes: -BUPIVACAINE 0.5% 30 ML SINGLE DOSE VIAL SC ONE; -Lactated Ringer's Solution 1,000 ML IV ONE; -Lidocaine Hydrochloride 30 ML VIAL SC ONE; -POTASSIUM CHLORIDE 20 MEQ TAB PO ONE; -ceFAZolin sodium 2GM/20ML IV ONE; -ceFAZolin sodium/sodium chlor 0 ML IV ONE
[2024-04-10 01:28] VITALS: BP 165/105
[2024-04-10 01:55] LABS: BASO # 0.1 10*3/uL (0.0-0.1); BASO % 0.7 % (0.0-1.0); EOS # 0.2 10*3/uL (0.0-0.4); EOS % 1.3 % (1.0-4.0); HEMATOCRIT 45.1 % (37.0-47.0); MEAN CELL VOLUME 94.7 fl (81.0-99.0); MEAN CORPUSCULAR HGB 31.3 pg (27.0-31.0); MEAN PLATELET VOLUME 9.8 fl (9.6-12.3); MONO # 1.4 10*3/uL (0.1-1.0); MONO % 10.3 % (3.0-9.0); NEUT % 59.4 % (47.0-73.0); PLATELET COUNT AUTOMATED 294 10*3/uL (130-400); RED BLOOD COUNT 4.76 10*6/uL (4.10-5.10); WHITE BLOOD COUNT 13.5 10*3/uL (4.8-10.8)
[2024-04-10 02:14] LABS: ACT PARTIAL THROMBO TIME 29.4 SECONDS (20.0-32.1); BUN 20 mg/dl (9-23); CHLORIDE 99 mmol/L (98-107)
[2024-04-10 02:42] VITALS: BP 157/101
[2024-04-10 05:41] VITALS: BP 160/93
[2024-04-10] MEDS ORDERED: POTASSIUM CHLORIDE 20 MEQ TAB PO ONE (06:40)
[2024-04-10] MEDS ORDERED: SODIUM CHLORIDE 0.9% 1,000 ML IV SCH (06:40)
[2024-04-10] MEDS ORDERED: MAGNESIUM SULFATE 100 ML IV ONE (06:40)
[2024-04-10] MEDS ORDERED: Ondansetron Hydrochloride 4 MG/2 ML VIAL IV PRN (06:45)
[2024-04-10] MEDS ORDERED: ACETAMINOPHEN 325 MG TAB PO PRN (06:45)
[2024-04-10 06:49] LABS: BILIRUBIN Negative (Negative); BLOOD Trace-Intact (Negative); CLARITY Cloudy (Clear); COLOR Yellow (Yellow); GLUCOSE Negative (Negative); KETONE Negative (Negative); LEUKO ESTERASE 3+ (Negative); NITRITE Negative (Negative); PH 5.5 (4.5-8.0)
[2024-04-10] MEDS ORDERED: Piperacillin Sodium/Tazobact 50 ML IV ONE (06:55)
[2024-04-10 07:07] LABS: WBC 21-30 wbc/hpf (0-5)
[2024-04-10 07:08] LABS: BACTERIA 3+; CALCIUM OXALATE CRYSTALS 1+; MUCOUS 1+
[2024-04-10 07:22] LABS: BASO # 0.1 10*3/uL (0.0-0.1); BASO % 1.1 % (0.0-1.0); EOS # 0.3 10*3/uL (0.0-0.4); EOS % 2.3 % (1.0-4.0); HEMATOCRIT 45.1 % (37.0-47.0); MEAN CELL VOLUME 93.4 fl (81.0-99.0); MEAN CORPUSCULAR HGB 31.7 pg (27.0-31.0); MEAN CORPUSCULAR HGB CONC 33.9 g/dl (33.0-37.0); MONO # 1.3 10*3/uL (0.1-1.0); MONO % 10.9 % (3.0-9.0); NEUT # 6.6 10*3/uL (2.3-7.9); NEUT % 54.3 % (47.0-73.0); PLATELET COUNT AUTOMATED 292 10*3/uL (130-400); RED BLOOD COUNT 4.83 10*6/uL (4.10-5.10); RED CELL DISTRI WIDTH 13.1 % (0-14.5); WHITE BLOOD COUNT 12.1 10*3/uL (4.8-10.8)
[2024-04-10 07:46] LABS: ALKALINE PHOSPHATASE 94 U/L (46-116); BUN 14 mg/dl (9-23); CHLORIDE 99 mmol/L (98-107); CHOLESTEROL 162 mg/dL (<200); LDL CHOLESTEROL 98 mg/dL (9-159); TOTAL PROTEIN 7.6 gm/dL (6.0-8.0); TRIGLYCERIDES 135 mg/dl (<150)
[2024-04-10 07:48] LABS: SGPT/ALT < 7 U/L (5-49)
[2024-04-10] MEDS ORDERED: Ceftriaxone Sodium 1 GM,IV 1 EA in SYRINGE INFUSION 10 ML IV SCH (10:00)
[2024-04-10] MEDS ORDERED: Enoxaparin Sodium 40 MG/0.4 ML SYR SC SCH (10:00)
[2024-04-10] MEDS ORDERED: Clopidogrel Hydrogen Sulfate 75 MG TAB PO SCH (10:00)
[2024-04-10] MEDS ORDERED: ASPIRIN, CHEWABLE 81 MG TAB PO SCH (10:00)
[2024-04-10 10:17] VITALS: BP 170/107
[2024-04-10 10:47] VITALS: BP 159/89
[2024-04-10] MEDS ORDERED: 'XANAX1 MG PO (11:29)
[2024-04-10] MEDS ORDERED: CARVEDILOL3.125 MG PO (11:29)
[2024-04-10] MEDS ORDERED: FLUOXETINE HYDR20 M1 PO (11:30)
[2024-04-10] MEDS ORDERED: OMEPRAZOLE MAGN20 MG PO (11:31)
[2024-04-10] MEDS ORDERED: CLOPIDOGREL75 MG PO (11:31)
[2024-04-10] MEDS ORDERED: POTASSIUM CHLO10 ME4 PO (11:31)
[2024-04-10 12:22] LABS: URINE AMPHETAMINES Negative (1000ng/ml); URINE BARBITURATES Negative (200ng/ml); URINE BENZODIAZEPINES Positive (200ng/ml); URINE CANNABINOIDS (THC) Negative (50ng/ml); URINE COCAINE Negative (300ng/ml); URINE METHADONE Negative (300ng/ml); URINE OPIATES Negative (300ng/ml); URINE PHENCYCLIDINE Negative (25ng/ml)
[2024-04-10] MEDS ORDERED: ALPRAZolam 0.5 MG TAB PO PRN (15:00)
[2024-04-10 15:33] VITALS: BP 158/76
[2024-04-10] MEDS ORDERED: CARVEDILOL 3.125 MG TAB PO SCH (22:00)
[2024-04-10] MEDS ORDERED: Fluoxetine Hydrochloride 20 MG CAP PO SCH (22:00)
[2024-04-11] MEDS ORDERED: OMEPRAZOLE 20 MG CAP PO SCH (07:30)
== END 2024-04-10 16:47 | disposition left against medical advice (07) | DRG 871 ==
LOC: ED 01:26 → EDHOLD 06:43
PROVIDERS: Family Medicine; Internal Medicine; Student in an Organized Health Care Education/Training Program; ADMIT Internal Medicine; ATTEND Internal Medicine
DX: A41.9 Sepsis, unspecified organism (principal); G93.41 Metabolic encephalopathy; S52.502A Unspecified fracture of the lower end of left radius, initial encounter for closed fracture; R47.01 Aphasia; N39.0 Urinary tract infection, site not specified; G45.9 Transient cerebral ischemic attack, unspecified; K55.1 Chronic vascular disorders of intestine; R65.20 Severe sepsis without septic shock; Z96.652 Presence of left artificial knee joint; E87.6 Hypokalemia; E83.42 Hypomagnesemia; J44.9 Chronic obstructive pulmonary disease, unspecified; I25.10 Atherosclerotic heart disease of native coronary artery without angina pectoris; G90.89 Other disorders of autonomic nervous system; I95.1 Orthostatic hypotension; D72.828 Other elevated white blood cell count; R73.9 Hyperglycemia, unspecified; I35.9 Nonrheumatic aortic valve disorder, unspecified; I10 Essential (primary) hypertension; Z88.6 Allergy status to analgesic agent; E78.5 Hyperlipidemia, unspecified; R31.9 Hematuria, unspecified; Z88.8 Allergy status to other drugs, medicaments and biological substances; Z90.710 Acquired absence of both cervix and uterus; Z90.722 Acquired absence of ovaries, bilateral; Z90.49 Acquired absence of other specified parts of digestive tract; Z87.891 Personal history of nicotine dependence; Z82.49 Family history of ischemic heart disease and other diseases of the circulatory system; Z80.59 Family history of malignant neoplasm of other urinary tract organ; Z87.442 Personal history of urinary calculi; Z86.73 Personal history of transient ischemic attack (TIA), and cerebral infarction without residual deficits; W18.39XA Other fall on same level, initial encounter; Y93.89 Activity, other specified; Y92.89 Other specified places as the place of occurrence of the external cause; Y99.8 Other external cause status

== ENCOUNTER 2024-11-10 06:03 | Emergency (ER) | payer OTHER ==
[~2024-11-10] VITALS: Ht 175.2 cm; Wt 62.1 kg
[~2024-11-10 06:03] MED LIST changes: +'XANAX1 MG PO; +CARVEDILOL3.125 MG PO; +CLOPIDOGREL75 MG PO; +FLUOXETINE HYDR20 M1 PO; +OMEPRAZOLE MAGN20 MG PO; +POTASSIUM CHLO10 ME4 PO
[2024-11-10] MEDS ORDERED: NAPROXEN250 MG PO (06:40)
== END 2024-11-10 06:53 | disposition home or self-care (01) ==
LOC: ED 06:03
DX: S80.01XA Contusion of right knee, initial encounter (principal); Z86.73 Personal history of transient ischemic attack (TIA), and cerebral infarction without residual deficits; Z98.86 Personal history of breast implant removal; Z88.5 Allergy status to narcotic agent; Z79.899 Other long term (current) drug therapy; Z90.710 Acquired absence of both cervix and uterus; Z95.5 Presence of coronary angioplasty implant and graft; Z90.49 Acquired absence of other specified parts of digestive tract; Z87.891 Personal history of nicotine dependence; W19.XXXA Unspecified fall, initial encounter; Y93.89 Activity, other specified; Y92.89 Other specified places as the place of occurrence of the external cause; Y99.8 Other external cause status

== ENCOUNTER 2025-01-22 12:06 | Emergency (ER) | payer OTHER ==
[~2025-01-22] VITALS: Wt 62.1 kg
[~2025-01-22 12:06] MED LIST changes: +NAPROXEN250 MG PO
[2025-01-22 12:39] LABS: BASO # 0.0 10*3/uL (0.0-0.1); BASO % 0.3 % (0.0-1.0); EOS # 0.0 10*3/uL (0.0-0.4); EOS % 0.0 % (1.0-4.0); MEAN CELL VOLUME 97.8 fl (81.0-99.0); MEAN CORPUSCULAR HGB 32.9 pg (27.0-31.0); MEAN PLATELET VOLUME 9.8 fl (9.6-12.3); MONO # 0.4 10*3/uL (0.1-1.0); MONO % 3.2 % (3.0-9.0); NEUT # 12.1 10*3/uL (2.3-7.9); NEUT % 88.3 % (47.0-73.0); NUCLEATED RED BLOOD CELL 0.0 % (0.0-0.0); NUCLEATED RED BLOOD CELL 0.0 10*3/uL (0.0-0.0); PLATELET COUNT AUTOMATED 284 10*3/uL (130-400); RED CELL DISTRI WIDTH 13.3 % (0-14.5)
[2025-01-22 13:05] LABS: BUN 17 mg/dl (9-23)
[2025-01-22] MEDS ORDERED: HEPARIN SODIUM 250 ML IV SCH (13:20)
[2025-01-22] MEDS ORDERED: MAGNESIUM SULFATE 50 ML IV ONE (13:20)
== END 2025-01-22 15:54 | disposition short-term general hospital (02) ==
LOC: ED 12:06
PROVIDERS: Nurse Practitioner Family
DX: I49.8 Other specified cardiac arrhythmias (principal); I21.3 ST elevation (STEMI) myocardial infarction of unspecified site; E83.42 Hypomagnesemia; I10 Essential (primary) hypertension; E78.5 Hyperlipidemia, unspecified; J44.9 Chronic obstructive pulmonary disease, unspecified; I25.10 Atherosclerotic heart disease of native coronary artery without angina pectoris; K21.9 Gastro-esophageal reflux disease without esophagitis; F32.A Depression, unspecified; F41.9 Anxiety disorder, unspecified; G43.909 Migraine, unspecified, not intractable, without status migrainosus; Z87.891 Personal history of nicotine dependence; Z90.710 Acquired absence of both cervix and uterus; Z98.890 Other specified postprocedural states; Z86.73 Personal history of transient ischemic attack (TIA), and cerebral infarction without residual deficits; Z87.440 Personal history of urinary (tract) infections; Z88.5 Allergy status to narcotic agent

== ENCOUNTER 2025-02-12 17:48 | Inpatient (IN) | payer OTHER ==
[~2025-02-12] VITALS: Ht 175.3 cm; Wt 63.5 kg
[2025-02-12] VITALS (11 sets, daily range): BP systolic 86–109; BP diastolic 40–74
[~2025-02-12 17:48] MED LIST changes: +ALDACTONE25 M1 PO; +AMIODARONE HCL400 MG PO; +BRILINTA90 M1 PO; +JARDIANCE10 MG PO; +ROSUVASTATIN CA20 MG PO; +XANAX1 MG PO
[2025-02-12] MEDS ORDERED: SODIUM CHLORIDE 0.9% 1,000 ML IV ONE ×3 (18:15→23:15)
[2025-02-12 18:25] LABS: MEAN CELL VOLUME 101.7 fl (81.0-99.0); MEAN CORPUSCULAR HGB 32.8 pg (27.0-31.0); MEAN PLATELET VOLUME 9.3 fl (9.6-12.3); NUCLEATED RED BLOOD CELL 0.0 % (0.0-0.0); NUCLEATED RED BLOOD CELL 0.0 10*3/uL (0.0-0.0); PLATELET COUNT AUTOMATED 302 10*3/uL (130-400); RED CELL DISTRI WIDTH 13.3 % (0-14.5)
[2025-02-12 18:27] LABS: MANUAL DIFF REFLEX YES
[2025-02-12 18:43] LABS: BUN 13 mg/dl (9-23)
[2025-02-12 18:50] LABS: BASOPHILS 1 % (0-1); VACUOLATION OF NEUTROPHILS SLIGHT
[2025-02-12 18:52] LABS: PLATELET SUFFICIENCY NORMAL (NORMAL)
[2025-02-13 00:30] VITALS: BP 102/59
[2025-02-13] MEDS ORDERED: Menthol/Zinc Oxide 4 GM THIN T PRN (01:40)
[2025-02-13 06:11] LABS: MEAN CELL VOLUME 102.2 fl (81.0-99.0); MEAN CORPUSCULAR HGB 33.2 pg (27.0-31.0); MEAN PLATELET VOLUME 9.3 fl (9.6-12.3); NUCLEATED RED BLOOD CELL 0.0 % (0.0-0.0); NUCLEATED RED BLOOD CELL 0.0 10*3/uL (0.0-0.0); PLATELET COUNT AUTOMATED 273 10*3/uL (130-400); RED CELL DISTRI WIDTH 13.6 % (0-14.5)
[2025-02-13 06:20] LABS: MANUAL DIFF REFLEX YES
[2025-02-13 06:31] LABS: BUN 9 mg/dl (9-23); SGPT/ALT 25 U/L (5-49)
[2025-02-13 06:51] LABS: PLATELET SUFFICIENCY NORMAL (NORMAL)
[2025-02-13 08:00] VITALS: BP 109/57
[2025-02-13] MEDS ORDERED: ACETAMINOPHEN 325 MG TAB PO PRN (09:30)
[2025-02-13] MEDS ORDERED: ALPRAZolam 0.5 MG TAB PO SCH (10:00)
[2025-02-13] MEDS ORDERED: TICAGRELOR 90 MG TABLET PO SCH (10:00)
[2025-02-13 12:00] VITALS: BP 96/56
[2025-02-13] MEDS ORDERED: Vancomycin Hydrochloride 1,000 MG in SODIUM CHLORIDE 0.9% 250 ML IV SCH (12:00)
[2025-02-13 16:00] VITALS: BP 116/59
[2025-02-13 20:00] VITALS: BP 120/68
[2025-02-13] MEDS ORDERED: ATORVASTATIN CALCIUM 80 MG TAB PO SCH (22:00)
[2025-02-14] VITALS: BP 109/59
[2025-02-14 06:34] LABS: MEAN CELL VOLUME 101.0 fl (81.0-99.0); MEAN CORPUSCULAR HGB 33.3 pg (27.0-31.0); MEAN PLATELET VOLUME 9.4 fl (9.6-12.3); NUCLEATED RED BLOOD CELL 0.0 % (0.0-0.0); NUCLEATED RED BLOOD CELL 0.0 10*3/uL (0.0-0.0); PLATELET COUNT AUTOMATED 287 10*3/uL (130-400); RED CELL DISTRI WIDTH 13.8 % (0-14.5)
[2025-02-14 06:35] LABS: MANUAL DIFF REFLEX YES
[2025-02-14 06:41] LABS: BUN 7 mg/dl (9-23)
[2025-02-14 07:05] LABS: BASOPHILS 2 % (0-1); STOMATOCYTE FEW; VACUOLATION OF NEUTROPHILS SLIGHT
[2025-02-14 07:06] LABS: PLATELET SUFFICIENCY NORMAL (NORMAL)
[2025-02-14] MEDS ORDERED: POTASSIUM CHLORIDE 20 MEQ TAB PO ONE (07:40)
[2025-02-14 08:00] VITALS: BP 115/58
[2025-02-14 12:00] VITALS: BP 98/51
[2025-02-14 16:00] VITALS: BP 121/69
[2025-02-14] MEDS ORDERED: MAGNESIUM OXIDE 400 MG TAB PO SCH (18:00)
[2025-02-14 20:00] VITALS: BP 109/51
[2025-02-15] VITALS: BP 117/62
[2025-02-15 06:27] LABS: MEAN CELL VOLUME 101.8 fl (81.0-99.0); MEAN CORPUSCULAR HGB 33.2 pg (27.0-31.0); MEAN PLATELET VOLUME 9.5 fl (9.6-12.3); NUCLEATED RED BLOOD CELL 0.0 % (0.0-0.0); NUCLEATED RED BLOOD CELL 0.0 10*3/uL (0.0-0.0); PLATELET COUNT AUTOMATED 299 10*3/uL (130-400); RED CELL DISTRI WIDTH 14.0 % (0-14.5)
[2025-02-15 06:29] LABS: MANUAL DIFF REFLEX YES
[2025-02-15 06:31] LABS: BUN 12 mg/dl (9-23)
[2025-02-15 06:55] LABS: BASOPHILS 1 % (0-1); PLATELET SUFFICIENCY NORMAL (NORMAL)
[2025-02-15 08:00] VITALS: BP 160/90
[2025-02-15] MEDS ORDERED: EMPAGLIFLOZIN 10 MG TABLET PO SCH (10:00)
[2025-02-15] MEDS ORDERED: Amiodarone Hydrochloride 200 MG TAB PO SCH (10:00)
[2025-02-15 12:00] VITALS: BP 146/82
[2025-02-15] MEDS ORDERED: MAGNESIUM SULFATE 50 ML IV ONE (14:30)
[2025-02-15 16:00] VITALS: BP 131/78
[2025-02-15 20:00] VITALS: BP 118/65
[2025-02-16] VITALS: BP 134/72
[2025-02-16 06:22] LABS: MEAN CELL VOLUME 101.3 fl (81.0-99.0); MEAN CORPUSCULAR HGB 33.3 pg (27.0-31.0); MEAN PLATELET VOLUME 9.2 fl (9.6-12.3); NUCLEATED RED BLOOD CELL 0.0 % (0.0-0.0); NUCLEATED RED BLOOD CELL 0.0 10*3/uL (0.0-0.0); PLATELET COUNT AUTOMATED 304 10*3/uL (130-400); RED CELL DISTRI WIDTH 14.4 % (0-14.5)
[2025-02-16 06:29] LABS: MANUAL DIFF REFLEX YES
[2025-02-16 06:42] LABS: BUN 11 mg/dl (9-23)
[2025-02-16 07:12] LABS: PLATELET SUFFICIENCY NORMAL (NORMAL)
[2025-02-16 08:00] VITALS: BP 107/59
[2025-02-16] MEDS ORDERED: POTASSIUM CHLORIDE 20 MEQ TAB PO ONE (08:05)
[2025-02-16 09:24] VITALS: BP 126/64
[2025-02-16] MEDS ORDERED: CHAIR CUSHION DEVICE ONE (10:45)
[2025-02-16] MEDS ORDERED: HEEL PROTECTOR DEVICE ONE (10:45)
[2025-02-16] MEDS ORDERED: ALPRAZOLAM0.5 M3 PO (11:13)
[2025-02-16] MEDS ORDERED: AMIODARONE HYD200 MG PO (11:13)
[2025-02-16] MEDS ORDERED: MAGNESIUM OXID400 MG PO (11:13)
[2025-02-16] MEDS ORDERED: OMNICEF300 MG PO (11:14)
[2025-02-16 12:00] VITALS: BP 117/57
== END 2025-02-16 13:43 | DRG 872 ==
LOC: ED 17:48 → 5E 20:30 → EDHOLD 20:30 → 5E 23:40
PROVIDERS: Internal Medicine; Nurse Practitioner Family; Student in an Organized Health Care Education/Training Program; ADMIT Internal Medicine; ATTEND Internal Medicine
DX: A41.9 Sepsis, unspecified organism (principal); N39.0 Urinary tract infection, site not specified; E87.20 Acidosis, unspecified; E87.1 Hypo-osmolality and hyponatremia; G45.9 Transient cerebral ischemic attack, unspecified; D53.9 Nutritional anemia, unspecified; I95.1 Orthostatic hypotension; I25.10 Atherosclerotic heart disease of native coronary artery without angina pectoris; I10 Essential (primary) hypertension; E78.5 Hyperlipidemia, unspecified; J44.9 Chronic obstructive pulmonary disease, unspecified; R29.6 Repeated falls; R65.20 Severe sepsis without septic shock; Z96.652 Presence of left artificial knee joint; Z88.1 Allergy status to other antibiotic agents; Z88.8 Allergy status to other drugs, medicaments and biological substances; Z90.49 Acquired absence of other specified parts of digestive tract; Z90.722 Acquired absence of ovaries, bilateral; Z82.49 Family history of ischemic heart disease and other diseases of the circulatory system; Z88.5 Allergy status to narcotic agent; Z79.899 Other long term (current) drug therapy

== ENCOUNTER 2025-02-28 23:12 | Emergency (ER) | payer OTHER ==
[~2025-02-28] VITALS: Wt 49.9 kg
[~2025-02-28 23:12] MED LIST changes: +ALPRAZOLAM0.5 M3 PO; +AMIODARONE HYD200 MG PO; +MAGNESIUM OXID400 MG PO; +OMNICEF300 MG PO
[2025-03-01] MEDS ORDERED: SODIUM CHLORIDE 0.9% 1,000 ML IV ONE (00:40)
== END 2025-03-01 03:12 | disposition left against medical advice (07) ==
LOC: ED 23:12
DX: I95.9 Hypotension, unspecified (principal); Z53.29 Procedure and treatment not carried out because of patient's decision for other reasons; J45.909 Unspecified asthma, uncomplicated; K21.9 Gastro-esophageal reflux disease without esophagitis; I25.10 Atherosclerotic heart disease of native coronary artery without angina pectoris; J44.9 Chronic obstructive pulmonary disease, unspecified; F32.A Depression, unspecified; F41.9 Anxiety disorder, unspecified; G43.909 Migraine, unspecified, not intractable, without status migrainosus; Z87.891 Personal history of nicotine dependence; Z90.710 Acquired absence of both cervix and uterus; Z98.890 Other specified postprocedural states; Z96.652 Presence of left artificial knee joint; Z88.1 Allergy status to other antibiotic agents; Z88.5 Allergy status to narcotic agent

== ENCOUNTER 2025-03-04 13:18 | Emergency (ER) | payer OTHER ==
[~2025-03-04] VITALS: Wt 52.6 kg
[2025-03-04 14:22] LABS: BASO # 0.1 10*3/uL (0.0-0.1); BASO % 0.7 % (0.0-1.0); EOS # 0.3 10*3/uL (0.0-0.4); EOS % 2.2 % (1.0-4.0); MEAN CELL VOLUME 104.8 fl (81.0-99.0); MEAN CORPUSCULAR HGB 33.2 pg (27.0-31.0); MEAN PLATELET VOLUME 8.7 fl (9.6-12.3); MONO # 1.0 10*3/uL (0.1-1.0); MONO % 6.7 % (3.0-9.0); NEUT # 12.0 10*3/uL (2.3-7.9); NEUT % 80.0 % (47.0-73.0); NUCLEATED RED BLOOD CELL 0.0 % (0.0-0.0); NUCLEATED RED BLOOD CELL 0.0 10*3/uL (0.0-0.0); PLATELET COUNT AUTOMATED 408 10*3/uL (130-400); RED CELL DISTRI WIDTH 14.6 % (0-14.5)
[2025-03-04 14:49] LABS: BUN 14.0 mg/dl (9-23)
[2025-03-04] MEDS ORDERED: SODIUM CHLORIDE 0.9% 1,000 ML IV ONE (16:05)
[2025-03-04] MEDS ORDERED: Midazolam Hydrochloride 2 MG/2 ML VIAL IV ONE (16:50)
== END 2025-03-04 18:00 | disposition left against medical advice (07) ==
LOC: ED 13:18
PROVIDERS: Internal Medicine
DX: I95.9 Hypotension, unspecified (principal); R55 Syncope and collapse; K21.9 Gastro-esophageal reflux disease without esophagitis; I25.10 Atherosclerotic heart disease of native coronary artery without angina pectoris; J44.89 Other specified chronic obstructive pulmonary disease; F32.A Depression, unspecified; I25.2 Old myocardial infarction; F41.9 Anxiety disorder, unspecified; G43.909 Migraine, unspecified, not intractable, without status migrainosus; Z87.891 Personal history of nicotine dependence; Z53.29 Procedure and treatment not carried out because of patient's decision for other reasons; Z98.890 Other specified postprocedural states; Z90.710 Acquired absence of both cervix and uterus; Z88.5 Allergy status to narcotic agent; Z88.1 Allergy status to other antibiotic agents